=== PATIENT | female | born 1990 | race Caucasian/White ===

== ENCOUNTER 2019-05-05 02:35 | Emergency (ER) | payer OTHER ==
[~2019-05-05] VITALS: Ht 165.1 cm; Wt 70.8 kg
[2019-05-05 02:40] VITALS: Ht 165.1 cm; Wt 70.8 kg
[2019-05-05 03:36] LABS: BASOPHIL % 0.4 % (0-2); PLATELET COUNT 259 x10^3mcL (130-400); RED CELL DISTRIBUTION WIDTH 13.3 % (11.5-14.5)
[2019-05-05 03:39] LABS: CALCIUM 8.1 mg/dL (8.5-10.1); CARBON DIOXIDE 27.5 mmol/L (21-32); CHLORIDE SERUM 107 mmol/L (98-107); CREATININE SERUM 0.7 mg/dL (0.6-1.0); GFR1 > 60 mL/min; GLUCOSE SERUM 98 mg/dL (74-106); POTASSIUM SERUM 3.7 mmol/L (3.5-5.1); SODIUM SERUM 142 mmol/L (136-145)
[2019-05-05 03:43] LABS: ALBUMIN 3.6 g/dL (3.4-5.0); ALKALINE PHOSPHATASE 62 U/L (46-116); ALT/SGPT 13 U/L (14-59); AST/SGOT 13 U/L (15-37); BILIRUBIN TOTAL 0.16 mg/dL (0.20-1.00); TOTAL PROTEIN, SERUM 6.9 g/dL (6.4-8.2)
[2019-05-05 04:32] LABS: microscopic required? YES; urine erythrocyte 3+ (NEGATIVE)
[2019-05-05 06:33] VITALS: BP 113/71
== END 2019-05-05 06:33 | disposition home or self-care (01) ==
LOC: ED 02:35
PROVIDERS: Emergency Medicine
DX: N39.0 Urinary tract infection, site not specified (principal); R10.2 Pelvic and perineal pain; N83.202 Unspecified ovarian cyst, left side
CPT/HCPCS: J0696; J1885; J7060